=== PATIENT | female | born 1990 | race Caucasian/White ===

== ENCOUNTER → 2024-08-11 | Outpatient (CLI) | payer BC, SELFPAY ==
--- NOTE | 2024-08-11 08:15 | XR_ITS ---
Examination: MRI thoracic spine without contrast. Date and time of exam: August 11, 2024 0846 hours INDICATIONS: Upper back pain beginning 7 months ago Technique: Multiple sagittal and axial images of the thoracic spine have been obtained. T1 weighted localizer, sagittal T2 weighted images, TR 30-50, TE 148, T1 weighted sagittal images, TR 650, TE 14, T2-weighted transverse images, TR 6770, TE 142 Findings: Satisfactory alignment thoracic vertebral bodies No thoracic fracture No thoracic disc narrowing with disc desiccation Normal marrow signal thoracic vertebral bodies Axial images demonstrate no focal thoracic disc protrusion No localized enlargement thoracic cord no syrinx cavity IMPRESSION: Satisfactory alignment thoracic vertebral bodies No acquired thoracic spinal stenosis
== END | disposition home or self-care (01) ==
PROVIDERS: Referring Provider Chiropractor; Visit Provider Chiropractor
DX: M54.6 Pain in thoracic spine (principal)
CPT/HCPCS: 72146